=== PATIENT | male | born 2005 | race Caucasian/White ===

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

== ENCOUNTER 2024-05-20 17:58 | Observation (INO) | payer BC, SELFPAY ==
[2024-05-20 18:04] VITALS: BP 137/79; PULSE 73; RESP 18; TEMP 36.7; O2SAT 97; BMI 22.0
[2024-05-20 18:37] LABS: Strep A DNA Probe* NOT DETECTED (Not Detectd)
--- NOTE | 2024-05-20 18:55 | CRLHL7_ITS ---
For Patients: As a result of the Century Cures Act, medical imaging exams and procedure reports are released immediately into your electronic medical record. You may view this report before your referring provider. If you have questions, please contact your health care provider. INDICATION: Left peritonsillar swelling. TECHNIQUE: CT of the neck soft tissues performed with IV contrast. Contrast: 71 cc Isovue 370. COMPARISON: CT neck soft tissues 01/12/2017. FINDINGS: Asymmetric enlargement of the left palatine tonsil. There is a hypodense fluid collection measuring 1.8 cm in the left peritonsillar region. Mild inflammatory change within the left parapharyngeal fat. The parotid and submandibular glands appear unremarkable. The thyroid gland is normal. Prominent left greater than right cervical chain lymphadenopathy, favored to be reactive. The visualized major vascular structures appear intact. The visualized intracranial components appear grossly intact. Visualized orbits and contents appear unremarkable. The paranasal sinuses are clear as visualized. Lung apices are clear. IMPRESSION: 1. Left peritonsillar abscess measuring up to 1.8 cm. 2. Reactive cervical chain lymphadenopathy. Please note that all CT scans at this facility use dose modulation, iterative reconstruction, and/or weight-based dosing when appropriate to reduce radiation dose to as low as reasonably achievable. Dictated by Olivier Finley MD @ 05/20/2024 7:40:50 PM (Electronically Signed)
--- NOTE | 2024-05-20 18:57 | ED_ITS ---
HPI - General Adult General Chief complaint: Sore Throat Stated complaint: sore throat, swelling Time Seen by Provider: 05/20/24 18:03 Source: patient and family Mode of arrival: ambulatory Limitations: no limitations History of Present Illness HPI narrative: 18-year-old male presents the emergency department with 4 day history of sore throat, significantly worsening over the past 2 days. Hard to swallow. No br eathing difficulty. Prior history of peritonsillar abscesses at age 12 and 14. Believes left for the 1st 1, right for the 2nd but not completely sure. Has had prior drainage x2. Denies fever. No illness exposures. Not immunocompromised. No trauma or injury. Has not tried any interventions to help with symptoms at home. Past medical history benign besides the peritonsillar abscesses. No long-term medications, no allergies. Has had drainage x2 as surgeries. ROS is notable for the HEENT symptoms as above, otherwise denies times 12 systems. No headache, no fever, no sinus tenderness, no nausea vomiting, no difficulty breathing, productive cough or skin changes. Related Data Home Medications ?Medication ?Instructions ?Recorded ?Confirmed No Known Home Medications 05/20/24 05/20/24 Allergies Allergy/AdvReac Type Severity Reaction Status Date / Time No Known Drug Allergies Allergy Verified 05/06/23 11:05 [facility] Social History Smoking Status: Current some day smoker What tobacco products do you use: cigars Do you use any of these nicotine containing products: Vaping Products How often do you have a drink containing alcohol: monthly or less How many standard drinks containing alcohol do you have on a typical day: 1 or 2 How often do you have six or more drinks on one occasion: Never AUDIT-C Alcohol total score: 1 Non-prescribed substance use: marijuana (any form) Non-prescribed substance use details: daily smoking Exam Const: Vital Signs, click to edit/add: Vital Signs - 24 hr 05/20/24 18:04 05/20/24 20:00 Temperature 98.1 F Pulse Rate [Pulse Oximeter] 73 74 Respiratory Rate 18 16 Blood Pressure [Ri ght Upper Arm] 137/79 130/80 Pulse Oximetry 97 96 Oxygen Delivery Me thod Room Air Documenting provider has reviewed patient's vital signs: yes Common normals: no apparent distress General appearance: well kempt Other: Friendly, cooperative, good historian. No muffled voice. HENMT: Common normals: normocephalic and TM's normal bilaterally Head and scalp: normocephalic Tympanic membrane: TM's normal bilaterally Other: Moist mucosa, normal lips, tongue and teeth. Asymmetric swelling of left perito nsillar area with 2+ tonsils, redness present left greater than right but no exudate. Nares normal in appearance. Facial bones normal with no signs of trauma. Eye: Common normals: conjunctivae normal General eye: normal appearance of both eyes Conjunctiva: conjunctiva(e) normal Neck & C-Spine: Common normals: full ROM Other: Moderate anterior cervical and submandibular lymphadenopathy left greater than right. No asymmetric neck swelling Chest: Common normals: inspection of chest normal Resp: Common normals: normal respiratory effort, no use of accessory muscles and clear to auscultation bilaterally Effort & inspection: able to speak in complete sentences Auscultation: clear to auscultation bilaterally Cardio: Common normals: regular rate, regular rhythm, S1 normal heart sound, S2 normal heart sound and no murmurs Rate: regular rate Rhythm: regular rhythm Heart sounds: S1 normal and S2 normal Psych: Appearance: well kempt Attitude: engaged Activity/motor behavior: appropriate eye contact Insight: insight good Judgement: judgment good Skin: Common normals: no rashes or lesions noted General skin exam: no rashes or lesions noted Course Course ED Course: 89-year-old male with asymmetric swelling of left tonsil area concerning for peritonsillar abscess. Prior history of peritonsillar abscess increasing his risk for this as well. Strep test is obtained and is negative. Plan: Will obtain CBC, CRP, basic metabolic panel, bolus 1 L of normal saline. CT of the neck. If signs of abscess, will consult ENT. Reevaluation(s) Time of Reevaluation #1: 20:27 Reevaluation #1: Labs reviewed with patient. Does have some leukocytosis and left shift. Electrolytes look great. At hydrated. CRP elevated. CT did show 1.8 cm abscess. Discussed case with Dr. Beltre. Patient is not showing any voice changes, signs of trismus, airway compromise or inability to swallow though he is having some pain with this. Will start Unasyn, give 8 mg IV dexamethasone and admit to hospitalist team. Dr. Loomis has accepted admission. Two tablets of hydrocodone will be tried in the ED for pain management. Dr. Beltre has requested no Toradol. Hospitalist team to update Dr. Beltre in the morning with patient progress. Please keep NPO after midnight. Clears okay for now. If patient does not have sufficient improvement in symptoms, may require surgical drainage. Dr. Beltre is aware and will await hospitalist update. Vital Signs Vital signs: Initial Vital Signs Temperature 98.1 F 05/20/24 18:04 Temperature Source Temporal Artery Scan 05/20/24 18:04 Pulse Rate 73 05/20/24 18:04 Respiratory Rate 18 05/20/24 18:04 Blood Pressure 137/79 05/20/24 18:04 Blood Pressure Mean 98 05/20/24 18:04 Pulse Oximetry 97 05/20/24 18:04 Oxygen Delivery Method Room Air 05/20/24 18:04 Vital Signs Temperature 98.1 F 05/20/24 18:04 Pulse Rate 73 05/20/24 18:04 Respiratory Rate 18 05/20/24 18:04 Blood Pressure 137/79 05/20/24 18:04 Pulse Oximetry 97 05/20/24 18:04 Oxygen Delivery Method Room Air 05/20/24 18:04 Temperature 98.1 F 05/20/24 18:04 Pulse Rate 74 05/20/24 20:00 Respiratory Rate 16 05/20/24 20:00 Blood Pressure 130/80 05/20/24 20:00 Pulse Oximetry 96 05/20/24 20:00 Oxygen Delivery Method Room Air 05/20/24 18:04 Medications Administered Medications: Discontinued Medications Generic Name Dose Route Start Last Admin Trade Name Freq PRN Reason Stop Dose Admin Sodium Chloride 1,000 mls @ 1,000 mls/hr 05/20/24 18:56 05/20/24 19:59 0.9 % Sodium Chloride 1000 Ml IV 05/20/24 19:55 Infused .Q1H [facility] Infusion Medical Decision Making Lab Data Lab results reviewed: Yes I reviewed the patient's lab results Lab results narrative: Leukocytosis with left shift and elevated CRP. Strep test is negative. Labs: Lab Results 08/17/24 08/17/24 Range/Units 18:05 19:05 WBC 13.47 H (4.50-11.00) K/uL RBC 5.36 (4.30-5.90) m/uL Hgb 15.4 (13.5-17.5) gm/dL Hct 45.6 (37.0-53.0) % MCV 85 (80-100) fL MCH 29 (26-34) pg MCHC 34 (32-36) gm/dL RDW Coeff of Brielle 12.4 (11.5-15.5) % Plt Count 229 (140-440) K/uL Neut % (Auto) 74.1 H (42.0-72.0) % Lymph % (Auto) 14.6 L (20-44) % [place] % (Auto) 10.4 (0.0-11.0) % Eos % (Auto) 0.6 (0.0-7.0) % Baso % (Auto) 0.1 (0.0-3.0) % Neut # (Auto) 10.00 H (1.7-7.0) K/uL Lymph # (Auto) 2.00 (0.90-2.90) K/uL [place] # (Auto) 1.40 H (0.00-0.90) K/UL Eos # (Auto) 0.10 (0.00-0.50) K/uL Baso # (Auto) 0.00 (0.00-0.30) K/uL Abs Immat Gran (auto) 0.00 (0.00-0.30) K/uL Imm/Tot Granulo (auto) 0.2 % Sodium 136 (135-149) mmol/L Potassium 4.2 (3.6-5.1) mmol/L Chloride 101 (96-114) mmol/L Carbon Dioxide 26 (20-32) mmol/L Anion Gap 9 (7-15) mEq/L BUN 19 (5-24) mg/dL Creatinine 1.1 (0.6-1.2) mg/dL Estimated Creat Clear 100.48 Estimated GFR 99 ml/min Glucose 103 (60-115) mg/dL Calcium 10.0 (8.7-10.8) mg/dL C-Reactive Protein 7.8 H (0.5-1.0) mg/dL Group A Strep DNA NOT DETECTED (Not Detectd) Imaging Data CT neck soft tissue: Attestation: I have reviewed the pertinent imaging results. My impression: Left tonsillar versus peritonsillar abscess. Radiologist's impression: Findings/impression : IMPRESSION: 1. Left peritonsillar abscess measuring up to 1.8 cm. 2. Reactive cervical chain lymphadenopathy. Discharge Plan Discharge Clinical Impression: Abscess, peritonsillar Patient Disposition: Admitted As Observation
[2024-05-20] MEDS: 0.9 % SODIUM CHLORIDE 1000 ml 1,000 ML IV (19:05)
[2024-05-20 19:13] LABS: Basophils Percent Auto 0.1 % (0.0-3.0); Eosinophils Percent Auto 0.6 % (0.0-7.0); Hematocrit 45.6 % (37.0-53.0); Hemoglobin* 15.4 gm/dL (13.5-17.5); Immature Granulocytes Pct Auto 0.2 %; Lymphocytes Percent Auto 14.6 % (20-44); Mean Corpuscular HGB Conc 34 gm/dL (32-36); Mean Corpuscular Hemoglobin 29 pg (26-34); Mean Corpuscular Volume 85 fL (80-100); Monocytes Percent Auto 10.4 % (0.0-11.0); Neutrophils Percent Auto 74.1 % (42.0-72.0); Platelet Count* 229 K/uL (140-440); RDW Coefficient of Variation % 12.4 % (11.5-15.5); Red Blood Count 5.36 m/uL (4.30-5.90); White Blood Count* 13.47 K/uL (4.50-11.00)
[2024-05-20 19:18] LABS: Slide Review Reflex No
[2024-05-20 19:25] LABS: Chloride* 101 mmol/L (96-114); Potassium* 4.2 mmol/L (3.6-5.1); Sodium* 136 mmol/L (135-149)
[2024-05-20 19:28] LABS: Creatinine* 1.1 mg/dL (0.6-1.2); Est. Creatinine Clearance* 100.48; Estimated Glomerular Filt Rate 99 ml/min
--- OUTSIDE RECORDS SUMMARY | 2024-05-20 19:28 | XMS_ITS | Clinical Summary ---
Author Organization [facility] Address [place], [place] [address] Care Team Providers Care Licensed Nuclear Control Room Operator Name Role Phone Carmen Rader MD Primary Care Provi giana Allergies No known active allergies Medications Medication Sig Dispensed Refills Start Date End Date Status FLUoxetine (PROZAC) 20 mg capsuleIndications:Adj ustment disorder with mixed anxiety and depressed mood Take 1 Capsule (20 mg) by mouth once daily. 30 Capsule 03/16/2024 Active hydrOXYzine HCL (ATARAX) 50 mg tabletIndications:Adju stment disorder with mixed anxiety and depressed mood Take 1 Tablet (50 mg) by mouth every 6 hours if needed for Itching. 30 Tablet 03/16/2024 Active dextroamphetamine-amph etamine (Adderall XR) 30 mg Extended-Release capsuleIndications:ADH D (attention deficit hyperactivity disorder), inattentive type Take 1 Capsule (30 mg) by mouth once daily. 30 Capsule 03/16/2024 Active Active Problems Problem Noted Date Diagnosed Date Adjustment disorder with mixed anxiety and depre ssed mood 10/05/2023 ADHD (attention deficit hype ractivity disorder), inattentive type 12/05/2020 Overview: Diagnosed at [facility] Encounters Date Type Department Care Team Description 05/10/2024 Telephone [facility] [address] [place], [place] [id number] Carmen Rader MD Questions (Referral Questions) 03/20/2024 Telephone [facility] [address] [place] [address] Carmen Rader MD Appointment 03/16/2024 Refill [facility] [address] [facility] [place] [address] Carmen Rader MD Refill Request (FLUoxetine (PROZAC) 20 mg [id number] Rbofrkl58/9/2024-No/Sig : Take 1 Capsule (20 mg) by mouth once daily./ /hydrOXYzine HCL (ATARAX) 50 mg [id number] Avpndk2202/10/2024-No/Sig: Take 1 Tablet (50 mg) by mouth every 6 hours if needed for Itching./ /dextroamphetamine-amph etamine (Adderall XR) 30 mg Extended-Release [id number] Pjvipzg98/9/2024-No/Sig : Take 1 Capsule (30 mg) by mouth once daily./) from Last 3 Months Immunizations Name Administration Dates Next Due COVID-19 vaccine (Social Media Simplified NTech 30mcg/0.3mL) 12YO+ BIVALENT PF, MDV 09/01/2022 COVID-19 vaccine (Social Media Simplified NTSilent Herdsman 30mcg/0.3mL) PF, MDV 02/19/2021,01/29/2021 DTaP 09/24/2005,2004 INcE-EmyF-ZEV (Pediarix) 2004,2004 DTaP-IPV (Kinrix) 06/07/2009 HIB PRP-OMP (PedvaxHIB) 09/24/2005,2004, HPV 9 (Gardasil 9) 06/23/2021,01/06/2021, 021 Hepatitis A (Peds) 06/23/2021,12/05/2020 Hepatitis B (Peds) 2004 Inactivated Polio Vaccine 2004 Influenza, IIV3 (Age >=3 years) 10/29/2005,09/24 Influenza, IIV4 06/23/2021 MMR 06/07/2009,09/24/2005 Meningococcal Vaccine (Menveo) 12/05/2020,2015 Pneumococcal conj 7-Valent (Prevnar 7) 1 2004,2004,2004,08/06 Polio Virus, Unspecified 2004 Tdap 06/18/2016 Varicella Vaccine 12/05/2020,06/07/2009 Family History Medical History Relation Name Comments ADD / ADHD Father ADD / ADHD Mother Atrial fibrillation Mother ADD / ADHD Sister Relation Name Status Comments Father Mother Sister Social History Tobacco Use Types Packs/Day Years Used Date Smoking Tobacco: Never Smokeless Tobacco: Never Tobacco Cessation:Counseling Given: No Alcohol Use Standard Drinks/Week Comments Not Currently 0 (1 standard drink = 0.6 oz pur e alcohol) Occ PHQ-2 Answer Date Recorded PHQ-2 TOTAL SCORE 2 01/12/2024 Social Connections Answer Date Recorded Frequency of Communication with Friends and Fami ly 4 11/02/2023 Financial Resource Strain Answer Date R ecorded Difficulty of Paying Living Expenses 3 11/02/2023 Difficulty of Paying Living Expenses Not on file 11/02/2023 Food Insecurity Answer Date Recorded Worried About Running Out of Food in the Last Ye ar 1 11/02/2023 Transportation Needs Answer Date Record ed Lack of Transportation (Medical) 1 11/02/2023 Housing Stability Answer Date Recorded Unable to Pay for Housing in the Last Year 1 11/02/2023 Sex and Gender Information Value Date Recorded Sex Assigned at Not on file Gender Identity Not on file Sexual Orientation Not on file Obstetrics History Last Filed Vital Signs Vital Sign Reading Time Taken Comments Blood Pressure 130/80 11/02/2023 11:07 AM ROADS SUPERINTENDENT Pulse 84 11/02/2023 11:07 AM ROADS SUPERINTENDENT Temperature 36.9 ??C (98.5 ??F) 02/13/2021 1 1:44 AM CDT Respiratory Rate - - Oxygen Saturation 99% 11/02/2023 11: 07 AM ROADS SUPERINTENDENT Inhaled Oxygen Concentration - - Weight 64.7 kg (142 lb 11.2 oz) 024 11:07 AM ROADS SUPERINTENDENT Height 173 cm (5' 8.11) 11/02/2023 11: 07 AM ROADS SUPERINTENDENT Body Mass Index 21.63 11/02/2023 11:07 AM ROADS SUPERINTENDENT Plan of Treatment Health Maintenance Due Date Last Done Comments Well Child Check for age 3-20 12/05/2021 12/05/2020 Hepatitis C screening for age 18-79 2022 COVID-19 vaccine series ( season) 2023 09/01/2022, 02/19/2021, 01/29/2021 Influenza for age 9-49 06/04/2024 , 10/29/2005, 09/24/2005 BMI (ht and wt on same day) for age 18+ 11/02/2024 11/02/2023, 10/05/2023, 09/16/2023, Additional history exists Depression screening for age 12+ 01/11/2025 01/12/2024, 11/04/2023, 11/02/2023, Additional history exists Tetanus booster 06/18/2026 06/18/2016 Pneumococcal series for age 6-64 Aged Out 09/24/2005, 2004, 2004, Additional history exists No longer eligible based on patient's age to complete this topic Tdap Completed 06/18/2016 HIV for age 15-65 Completed 12/05/2020 Meningococcal series for age 11-21 Completed 12/05/2020, 06/18/2016 HPV series for age 9-26 Completed 06/23/20 21, 01/06/2021, 12/05/2020 Procedures Procedure Name Priority Date/Time Associated Diagnosis Comments ANTI HIV 1/2 Routine 12/05/2020 12:35 PM ROADS SUPERINTENDENT Screening for HIV (human immunodeficiency virus) from Last 3 Months or Most Recently Relevant to Health Maintenance Results * ANTI HIV 1/2 (12/05/2020 12:35 PM ROADS SUPERINTENDENT) HIV-1/HIV-2 ANTIBODY Non-Reacti ve Non-Reacti ve 12/05/2020 10:43 PM ROADS SUPERINTENDENT [facility] Comment:HIV-1 p24 and HIV-1/ HIV-2 Ab not detected. Blood BLOOD SPECIMEN / Unknown Venipuncture / Unknown 12/05/2020 12:35 PM ROADS SUPERINTENDENT 12/05/2020 12:40 PM ROADS SUPERINTENDENT Carmen Rader MD [facility] [address] [place] [address], from Last 3 Months or Most Recently Relevant to Health Maintenance Care Teams Licensed Nuclear Control Room Operator Relationship Specialty Start Date End Date Carmen Rader MD [address] [place] [address] PCP - General Pediatric 01/06/21
[2024-05-20 19:29] LABS: Anion Gap 9 mEq/L (7-15); Blood Urea Nitrogen* 19 mg/dL (5-24); Carbon Dioxide* 26 mmol/L (20-32); Glucose* 103 mg/dL (60-115)
[2024-05-20 19:32] LABS: C Reactive Protein* 7.8 mg/dL (0.5-1.0)
[2024-05-20 20:00] VITALS: BP 130/80; PULSE 74; RESP 16; O2SAT 96
[2024-05-20] MEDS: HYDROCODONE-ACETAMIN 5-325 MG 1 TAB 2 TAB PO (21:00)
[2024-05-20] MEDS: dexAMETHasone 10 MG/ML inj 8 MG IVP (21:34)
[2024-05-20] MEDS: AMPICILLIN/SULBACTAM 3 GM in 0.9 % SODIUM CHLORIDE Mini-bag 100 ML IVPB (21:34)
[2024-05-20 22:00] VITALS: BP 145/107; RESP 18; TEMP 36.7; O2SAT 96
[2024-05-20 23:00] VITALS: RESP 18
--- NOTE | 2024-05-20 23:02 | PM.IMHP1 ---
Hospitalist- H&P: HPI History of Present Illness Time Seen by Provider: 22:30 Date Seen: 05/20/24 Chief complaint: sore throat, swelling Narrative: Alphonso Loyola is a 18 year old male with a prior history of 2 peritonsillar abscesses at the ages of 12 and 14 who presented through the emergency department today for concern of a sore throat for the past 4 days. He has had a sharp pain just behind his left upper back most molar. The pain has gotten worse to the point where he could not eat and it was difficult to swallow even liquids. He was spitting in a cup for a day or 2. He felt like he was getting dry. He could not sleep all last night due to the pain. And he is having trouble opening his mouth and has to do so very slowly. He got dexamethasone, hydrocodone, IV fluid, and Unasyn in the ER and is already feeling somewhat better. He notes that his voice was muffled earlier, but is no longer. He denies any fevers or chills. He denies any upper respiratory illness recently. Review of Systems Status of ROS: Reports: 10 or more systems reviewed and unremarkable except as noted in History and below [facility] Medical History (Updated 05/20/24 @ 23:18 by Merna Loomis MD) ADHD ?F90.9 - Attention-deficit hyperactivity disorder, unspecified type (ICD-10) Surgical History (Updated 05/20/24 @ 23:07 by Merna Loomis MD) H/O peritonsillar abscess drainage ?Z98.890 - Other specified postprocedural states (ICD-10) Social History (Updated 05/20/24 @ 23:09 by Merna Loomis MD) Narrative: Works at a local [employer]. He tells me that he vapes socially, but has not had any for a few days because he tried yesterday but could not really suck and air through the vape due to pain. He typically uses marijuana daily but again has not used it for several days. He tells me he has not used alcohol in several weeks to months. He denies any other recreational drugs besides marijuana. Smoking Status: Current some day smoker What tobacco products do you use: cigars Do you use any of these nicotine containing products: Vaping Products How often do you have a drink containing alcohol: monthly or less How many standard drinks containing alcohol do you have on a typical day: 1 or 2 How often do you have six or more drinks on one occasion: Never AUDIT-C Alcohol total score: 1 Non-prescribed substance use: marijuana (any form) Non-prescribed substance use details: daily smoking Meds Home Medications and Allergies Home Medications ?Medication ?Instructions ?Recorded ?Confirmed ?Type melatonin 5 mg capsule 5 - 10 mg PO HS PRN 05/20/24 05/20/24 History Allergies Allergy/AdvReac Type Severity Reaction Status Date / Time No Known Drug Allergies Allergy Verified 05/06/23 11:05 Exam Narrative: Exam Narrative: General: No acute distress. Awake alert oriented x3. Voices of clear quality, not muffled. Appears comfortable. Able to handle his own secretions. Able to swallow sips of water that is at bedside. HEENT: Normocephalic atraumatic, pupils equally round and reactive to light and accommodation. Oropharynx: Trismus noted. Left tonsil is smooth and swollen superiorly and is without ulcer, purulence or exudate. Right tonsil is unremarkable in appearance. Mucous membranes are moist. Left superior anterior lymphadenopathy noted. No JVD. Cardiovascular: Regular rate and rhythm. No murmurs, gallops, or rubs. Chest: No increased work of breathing. Clear to auscultation bilaterally. No crackles or wheezes. Abdomen: Bowel sounds present. Soft, nondistended, nontender. No hepatosplenomegaly or masses. Extremities: No edema, no cyanosis or clubbing. Skin: No jaundice, no pallor, no rashes on visible skin. Const: Vital Signs, click to edit/add: Vital Signs - 24 hr 05/20/24 18:04 05/20/24 20:00 Temperature 98.1 F Pulse Rate [Pulse Oximeter] 73 74 Respiratory Rate 18 16 Blood Pressure [Ri ght Upper Arm] 137/79 130/80 Pulse Oximetry 97 96 Oxygen Delivery Me thod Room Air Hospitalist - H&P: Result Labs Labs: Short CBC 05/20/24 Range/Units 19:05 WBC 13.47 H (4.50-11.00) K/uL Hgb 15.4 (13.5-17.5) gm/dL Hct 45.6 (37.0-53.0) % Plt Count 229 (140-440) K/uL [facility] 05/20/24 19:05 Sodium 136 Potassium 4.2 Chloride 101 Carbon Dioxide 26 BUN 19 Creatinine 1.1 Glucose 103 Calcium 10.0 Ordering Physician: Tasha Germain M.D. Date of Service: 05/20/24 Procedure(s): CT soft tissue neck w con Accession Number(s): [id number] cc: Damion Huggins D.O.; Tasha Germain M.D.~ For Patients: As a result of the Cures Act, medical imaging exams and procedure reports are released immediately into your electronic medical record. You may view this report before your referring provider. If you have questions, please contact your health care provider. INDICATION: Left peritonsillar swelling. TECHNIQUE: CT of the neck soft tissues performed with IV contrast. Contrast: 71 cc Isovue 370. COMPARISON: CT neck soft tissues 01/12/2017. FINDINGS: Asymmetric enlargement of the left palatine tonsil. There is a hypodense fluid collection measuring 1.8 cm in the left peritonsillar region. Mild inflammatory change within the left parapharyngeal fat. The parotid and submandibular glands appear unremarkable. The thyroid gland is normal. Prominent left greater than right cervical chain lymphadenopathy, favored to be reactive. The visualized major vascular structures appear intact. The visualized intracranial components appear grossly intact. Visualized orbits and contents appear unremarkable. The paranasal sinuses are clear as visualized. Lung apices are clear. IMPRESSION: 1. Left peritonsillar abscess measuring up to 1.8 cm. 2. Reactive cervical chain lymphadenopathy. Please note that all CT scans at this facility use dose modulation, iterative reconstruction, and/or weight-based dosing when appropriate to reduce radiation dose to as low as reasonably achievable. Dictated by Olivier Finley MD @ 05/20/2024 7:40:50 PM (Electronically Signed) Assessment and Plan Assessment and plan (1) Abscess, peritonsillar: Problem comment: - admit for observation overnight. Dr. Beltre from ENT was contacted from the ER. Appreciate his recommendations. Clear liquid diet until midnight, then NPO. Continue Unasyn and dexamethasone that were started in the emergency department. Will use oral oxycodone for pain control as it will last longer than IV medication. Continue IV fluids for maintenance overnight since he will be NPO for most of it. Re-evaluate in the morning. Status: Acute
[2024-05-20 23:24] VITALS: O2SAT 97
--- NOTE | 2024-05-20 23:25 | PC.NURSE ---
Patient alert and oriented x4. Independent. Reports that he feels better than when he presented to the ED. He reports his pain to be 6/10 from 8/10 which is tolerable per patient. Skin intact with no open areas noted.Able to communicate needs. Patient notified of diet order i.e clear liquids till midnight then NPO at midnight. Patient agreeable to plan.
[2024-05-20 23:50] VITALS: BP 134/98; PULSE 64; RESP 18; TEMP 36.5; O2SAT 97
[2024-05-21] MEDS: LACTATED RINGERS 1000 ML 1,000 ML 125 ML IV ×2 (00:03→09:42)
[2024-05-21] MEDS: MELATONIN 3 MG TABLET 6 MG PO (00:08)
[2024-05-21] MEDS: AMPICILLIN/SULBACTAM 3 GM in 0.9 % SODIUM CHLORIDE Mini-bag 100 ML IVPB ×3 (02:59→14:24)
[2024-05-21 03:44] VITALS: BP 108/66; PULSE 63; RESP 16; TEMP 36; O2SAT 97
[2024-05-21 06:37] LABS: Basophils Percent Auto 0.1 % (0.0-3.0); Hematocrit 40.1 % (37.0-53.0); Hemoglobin* 13.6 gm/dL (13.5-17.5); Immature Granulocytes Pct Auto 0.2 %; Lymphocytes Percent Auto 7.9 % (20-44); Mean Corpuscular HGB Conc 34 gm/dL (32-36); Mean Corpuscular Hemoglobin 29 pg (26-34); Mean Corpuscular Volume 85 fL (80-100); Monocytes Percent Auto 2.7 % (0.0-11.0); Neutrophils Percent Auto 89.1 % (42.0-72.0); Platelet Count* 233 K/uL (140-440); RDW Coefficient of Variation % 12.3 % (11.5-15.5); Red Blood Count 4.73 m/uL (4.30-5.90); White Blood Count* 12.02 K/uL (4.50-11.00)
[2024-05-21 06:41] LABS: Slide Review Reflex No
--- NOTE | 2024-05-21 06:41 | PC.NURSE ---
End of shift note: Pt alert & oriented x 4 and able to make needs known. He is independent with transferring/ambulation. DBP noted to be elevated at 98 last evening though B/P of 108/66 noted with 0300 VS. Pt has been on RA throughout the shift and has been afebrile. New IV started in L wrist with LR started at 125 mLs/hr per order. Pt NPO since 0000 in prep for possible surgery today. He has been denying pain when asked and states he is feeling better today compared to yesterday. Pt stated, I'm noticing my voice is coming back. Pt remains on IV antibiotic. Call light within reach. ?
[2024-05-21 06:58] LABS: Chloride* 104 mmol/L (96-114); Potassium* 4.5 mmol/L (3.6-5.1); Sodium* 137 mmol/L (135-149)
[2024-05-21 07:01] LABS: Anion Gap 9 mEq/L (7-15); Carbon Dioxide* 24 mmol/L (20-32); Creatinine* 0.8 mg/dL (0.6-1.2); Est. Creatinine Clearance* 143.69; Estimated Glomerular Filt Rate 131 ml/min
[2024-05-21 07:02] LABS: Blood Urea Nitrogen* 15 mg/dL (5-24); Calcium* 9.7 mg/dL (8.7-10.8); Glucose* 156 mg/dL (60-115)
[2024-05-21 08:00] VITALS: BP 120/72; PULSE 72; RESP 18; TEMP 36.2; O2SAT 98
[2024-05-21 08:31] LABS: C Reactive Protein* 17.7 mg/dL (0.5-1.0)
[2024-05-21] MEDS: dexAMETHasone 4 MG TABLET 8 MG PO (08:34)
[2024-05-21] MEDS: OXYCODONE 5 MG TABLET PO ×2 (08:48→13:41)
[2024-05-21 12:00] VITALS: BP 118/64; PULSE 68; RESP 18; TEMP 36.4; O2SAT 99
--- NOTE | 2024-05-21 12:32 | PM.DS1 ---
DS: Providers Provider Date Seen: 05/21/24 Date of admission: 05/20/24 21:47 Primary care physician: Damion Huggins DO Admitting Clinician: Merna Loomis MD Attending Physician on discharge: Rene Chong MD Date of Discharge: 05/21/24 DS: Diagnosis Discharge Diagnosis (1) Abscess, peritonsillar: Status: Acute Problem details: - admit for observation overnight. Dr. Beltre from ENT was contacted from the ER. Appreciate his recommendations. Clear liquid diet until midnight, then NPO. Continue Unasyn and dexamethasone that were started in the emergency department. Will use oral oxycodone for pain control as it will last longer than IV medication. Continue IV fluids for maintenance overnight since he will be NPO for most of it. Re-evaluate in the morning. DS: Summary Hospital Course Hospital Course: Alphonso Loyola is a 18 year old male with a prior history of 2 peritonsillar abscesses at the ages of 12 and 14 who presented through the emergency department today for concern of a sore throat for the past 4 days. He has had a sharp pain just behind his left upper back most molar. The pain has gotten worse to the point where he could not eat and it was difficult to swallow even liquids. He was spitting in a cup for a day or 2. He felt like he was getting dry. He could not sleep all last night due to the pain. And he is having trouble opening his mouth and has to do so very slowly. He got dexamethasone, hydrocodone, IV fluid, and Unasyn in the ER and is already feeling somewhat better. He notes that his voice was muffled earlier, but is no longer. He denies any fevers or chills. He denies any upper respiratory illness recently. Overnight he reports he was continued to get better. No fever. Stable to swallow better today. Good appetite. Status at Discharge Overall status at discharge: patient is progressing back to baseline Time Spent with Patient Time attestation: Total time spent providing and/or coordinating discharge services: Time spent: Greater than 30 minutes Specific discharge activities: Patient had many questions about peritonsillar abscess, tonsillectomy, pain control. Exam Narrative: Exam Narrative: He is alert and appears in no distress. Speech is normal. No muffling or hoarseness to his voice. Oropharynx with good airway. [id number] left peritonsillar swelling and erythema. No significant exudate. No trismus. Neck is supple with mild anterior cervical tenderness but no significant adenopathy on the left. Const: Vital Signs, click to edit/add: Vital Signs - 24 hr 05/20/24 18:04 05/20/24 20:00 05/20/24 22:00 Temperature 98.1 F 98.1 F Pulse Rate [Pulse Oximeter] 73 74 Pulse Rate [Right Pulse Oximeter] Respiratory Rate 18 16 18 Blood Pressure [Le ft Arm] 145/107 H Blood Pressure [Ri ght Upper Arm] 137/79 130/80 Pulse Oximetry 97 96 96 Oxygen Delivery Me thod Room Air Room Air 05/20/24 23:00 05/20/24 23:24 05/20/24 23:50 Temperature 97.7 F Pulse Rate [Pulse Oximeter] Pulse Rate [Right Pulse Oximeter] 64 Respiratory Rate 18 18 Blood Pressure [Le ft Arm] 134/98 H Blood Pressure [Ri ght Upper Arm] Pulse Oximetry 97 97 Oxygen Delivery Me thod Room Air 05/21/24 03:44 05/21/24 08:00 05/21/24 08:00 Temperature 96.8 F L 97.2 F L Pulse Rate [Pulse Oximeter] Pulse Rate [Right Pulse Oximeter] 63 72 Respiratory Rate 16 18 18 Blood Pressure [Le ft Arm] 108/66 120/72 Blood Pressure [Ri ght Upper Arm] Pulse Oximetry 97 98 98 Oxygen Delivery Me thod Room Air Room Air Room Air Documenting provider has reviewed patient's vital signs: yes DS: Data Data Completed and Pending Labs on day of discharge: Labs from last 24 hours 05/21/24 05/20/24 05/20/24 05:47 19:05 18:05 WBC 12.02 H 13.47 H RBC 4.73 5.36 Hgb 13.6 15.4 Hct 40.1 45.6 MCV 85 85 MCH 29 29 MCHC 34 34 RDW Coeff of Brielle 12.3 12.4 Plt Count 233 229 Neut % (Auto) 89.1 H 74.1 H Lymph % (Auto) 7.9 L 14.6 L Kane % (Auto) 2.7 10.4 Eos % (Auto) 0.0 0.6 Baso % (Auto) 0.1 0.1 Neut # (Auto) 10.70 H 10.00 H Lymph # (Auto) 0.90 2.00 Kane # (Auto) 0.30 1.40 H Eos # (Auto) 0.00 0.10 Baso # (Auto) 0.00 0.00 Abs Immat Gran (auto) 0.00 0.00 Imm/Tot Granulo (auto) 0.2 0.2 Sodium 137 136 Potassium 4.5 4.2 Chloride 104 101 Carbon Dioxide 24 26 Anion Gap 9 9 BUN 15 19 Creatinine 0.8 1.1 Estimated Creat Clear 143.69 100.48 Estimated GFR 131 99 Glucose 156 H 103 Calcium 9.7 10.0 C-Reactive Protein 17.7 H 7.8 H Group A Strep DNA NOT DETECTED Imaging CT scan neck soft tissue: Radiologist's impression: INDICATION: Left peritonsillar swelling. TECHNIQUE: CT of the neck soft tissues performed with IV contrast. Contrast: 71 cc Isovue 370. COMPARISON: CT neck soft tissues 01/12/2017. FINDINGS: Asymmetric enlargement of the left palatine tonsil. There is a hypodense fluid collection measuring 1.8 cm in the left peritonsillar region. Mild inflammatory change within the left parapharyngeal fat. The parotid and submandibular glands appear unremarkable. The thyroid gland is normal. Prominent left greater than right cervical chain lymphadenopathy, favored to be reactive. The visualized major vascular structures appear intact. The visualized intracranial components appear grossly intact. Visualized orbits and contents appear unremarkable. The paranasal sinuses are clear as visualized. Lung apices are clear. IMPRESSION: 1. Left peritonsillar abscess measuring up to 1.8 cm. 2. Reactive cervical chain lymphadenopathy. Discharge Plan Discharge Disposition: Home, Self-Care Date of Admission: 05/20/24 21:47 Attending Provider on Discharge: Giovani Chong Primary Care Provider: Damion Huggins Condition: Improved Anticipated Discharge Date/Time: 05/21/24 14:00 Discharge Medications: New amoxicillin-pot clavulanate 875-125 mg tablet 1 tab PO BID Qty: 14 0RF oxycodone 5 mg tablet 5 mg PO Q6H PRN (Reason: pain) Qty: 10 0RF Continued melatonin 5 mg capsule 5 - 10 mg PO HS PRN Discharge Orders: Discharge Order (Routine); Ordered 05/21/24 Ordered By: Giovani Chong Patient Education: Amoxicillin/Clavulanate Potassium (By mouth), Peritonsillar Abscess (DC) Additional Instructions: Return to the hospital if worsening throat pain, fever, trouble swallowing or trouble breathing. Activity Level: No Restrictions Discharge Diet: Regular Follow Up Appointments: Damion Huggins DO [Primary Care Provider] - Brad Beltre MD [Staff Physician] - 05/26/24 1:00 pm ([facility] for follow up) Forms: [facility] Info Instructions
--- NOTE | 2024-05-21 15:31 | PC.NURSE ---
Pt pleasant and cooperative. Rating pain 2-7/10, Oxycodone per MAR with relief. Up independent in room. Pt able to swallow small pills with water. Pt states he is feeling much better than night. I am able to talk easier too. IV antibiotics. DC instructions given verbally and in writing. All questions answered. IV DC'd, cath tip intact. Pt states pt is picking him up at door. DC @[id number].
== END 2024-05-21 15:26 | disposition home or self-care (01) ==
LOC: ED 20:30 → MEDSURG 21:47
PROVIDERS: Admitting Provider Family Medicine; Emergency Provider Family Medicine; PCP Pediatrics; Visit Provider Family Medicine
DX: J36 Peritonsillar abscess (principal); R79.82 Elevated C-reactive protein (CRP); D72.829 Elevated white blood cell count, unspecified; R13.10 Dysphagia, unspecified; F12.90 Cannabis use, unspecified, uncomplicated; F17.290 Nicotine dependence, other tobacco product, uncomplicated; F90.9 Attention-deficit hyperactivity disorder, unspecified type; Z87.09 Personal history of other diseases of the respiratory system; Z98.890 Other specified postprocedural states
CPT/HCPCS: 36415; 70491; 80048; 85025; 86140; 87651; 96361; 96365; 96366; 96375; 99284; 99285; A9270; G0378; J0295; J1100; J7030; J7120; Q9967

== ENCOUNTER 2024-12-29 00:29 | Emergency (ER) | payer BC, SELFPAY ==
--- OUTSIDE RECORDS SUMMARY | 2024-12-29 00:31 | XMS_ITS | Clinical Summary ---
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 30 Capsule 4 Active hydrOXYzine HCL (ATARAX) 50 mg tabletIndications: Adjustment disorder with mixed anxiety and depressed mood Take 1 Tablet (50 mg) by mouth every 6 hours if needed for Itching. 30 Tablet 4 Active dextroamphetamine- amphetamine (Adderall XR) 30 mg Extended-Release capsuleIndications :ADHD (attention deficit hyperactivity disorder), inattentive type Take 1 Capsule (30 mg) by mouth once daily. 30 Capsule 4 Active Active Problems Problem Noted Date Diagnosed Date Adjustment disorder with mixed anxiety and depre ssed mood 10/05/2023 ADHD (attention deficit hype ractivity disorder), inattentive type 12/05/2020 Overview (12/05/2020): Diagnosed at [facility] Immunizations Immunization Administration Dates Next Due COVID-19 vaccine (Tagasauris-Bio NTech 30mcg/0.3mL) 12YO+ BIVALENT PF MDV 09/01/2022 COVID-19 vaccine (Tagasauris-Bio NTech 30mcg/0.3mL) PF MDScot 02/19/2021,01/29/2021 DTaP 09/24/2005,2004 [id number] (Pediarix) 2004,2004 DTaP-IPV (Kinrix) 06/07/2009 HIB PRP-OMP (PedvaxHIB) 09/24/2005,2004, HPV 9 (Gardasil 9) 06/23/2021,01/06/2021, 021 Hepatitis A (Peds) 06/23/2021,12/05/2020 Hepatitis B (Peds) 2004 Inactivated Polio Vaccine 2004 Influenza, IIV3 (Age >=3 years) 10/29/2005,09/24 Influenza, IIV4 06/23/2021 MENINGOCOCCAL VACCINE 2 VIAL 2MO-55YO (MENVEO) 12/05/2020,06/18/2016 MMR 06/07/2009,09/24/2005 Pneumococcal conj 7-Valent (Prevnar 7) 1 2004,2004,2004,08/06 [...] 2 01/12/2024 Social Connections Answer Date Recorded Do you often feel lonely or isolated from those around you? 4 11/02/2023 Financial Resource Strain Answer Date R ecorded Difficulty of Paying Living Expenses 3 11/02/2023 Difficulty of Paying Living Expenses Not on file 11/02/2023 Food Insecurity Answer Date Recorded Do you worry your food will run out before you are able to buy more? 1 11/02/2023 Transportation Needs Answer Date Record ed Does lack of transportation keep you from medica l appointments? 1 11/02/2023 Does lack of transportation keep you from work, meetings or getting things that you need? 1 11/02/2023 Housing Stability Answer Date Recorded What is your housing situation today? 1 11/02/2023 Utilities Answer Date Recorded Do you have trouble paying f or utilities (for example, heat, electricity, water, phone)? 1 11/02/2023 Sex and Gender Information Value Date Recorded Sex Assigned at Not on file Legal Sex Male 7:05 AM FILING AND POLISHING SUPERVISOR Gender Identity Not on file Sexual Orientation Not on file Obstetrics History Last Filed Vital Signs Vital Sign Reading Time Taken Comments Blood Pressure 130/80 11/02/2023 11:07 AM FILING AND POLISHING SUPERVISOR Pulse 84 11/02/2023 11:07 AM FILING AND POLISHING SUPERVISOR Temperature 36.9 C (98.5 F) 02/13/2021 11:44 AM CDT Respiratory Rate - - Oxygen Saturation 99% 11/02/2023 11: 07 AM FILING AND POLISHING SUPERVISOR Inhaled Oxygen Concentration - - Weight 64.7 kg (142 lb 11.2 oz) 024 11:07 AM FILING AND POLISHING SUPERVISOR Height 173 cm (5' 8.11) 11/02/2023 11: 07 AM FILING AND POLISHING SUPERVISOR Body Mass Index 21.63 11/02/2023 11:07 AM FILING AND POLISHING SUPERVISOR Plan of Treatment Health Maintenance Due Date Last Done Comments Well Child Check for age 3-20 12/05/2021 12/05/2020 Hepatitis C screening for age 18-79 2022 COVID-19 vaccine series ( season) 2024 09/01/2022, 02/19/2021, 01/29/2021 Influenza Vaccine (#1) 2024 , 10/29/2005, 09/24/2005 BMI (ht and wt on same day) for age 18+ 11/02/2024 11/02/2023, 10/05/2023, 09/16/2023, Additional history exists Depression screening for age 12+ 01/11/2025 01/12/2024, 11/04/2023, 11/02/2023, Additional history exists Tetanus booster 06/18/2026 06/18/2016 Pneumococcal series for age 6-49 Aged Out 09/24/2005, 2004, 2004, Additional history exists No longer eligible based on patient's age to complete this topic Tdap Completed 06/18/2016 HIV for age 15-65 Completed 12/05/2020 Meningococcal series for age 11-21 Completed 12/05/2020, 06/18/2016 HPV series for age 9-26 Completed 06/23/20 21, 01/06/2021, 12/05/2020 Procedures Procedure Name Priority Date/Time Associated Diagnosis Comments ANTI HIV 1/2 Routine 12/05/2020 12:35 PM FILING AND POLISHING SUPERVISOR Screening for HIV (human immunodeficiency virus) from Last 3 Months or Most Recently Relevant to Health Maintenance Results * ANTI HIV 1/2 (12/05/2020 12:35 PM FILING AND POLISHING SUPERVISOR) HIV-1/HIV-2 ANTIBODY Non-Reacti ve Non-Reacti ve 12/05/2020 10:43 PM FILING AND POLISHING SUPERVISOR [facility] Comment:HIV-1 p24 and HIV-1/ HIV-2 Ab not detected. Blood BLOOD SPECIMEN / Unknown Venipuncture / Unknown 12/05/2020 12:35 PM FILING AND POLISHING SUPERVISOR 12/05/2020 12:40 PM FILING AND POLISHING SUPERVISOR Carmen Rader MD SEND OUTS Fin al Result [facility] 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
[2024-12-29 00:34] VITALS: BMI 28.0
--- NOTE | 2024-12-29 00:42 | ED.ANIMALBIT ---
HPI - Animal Bite General Time Seen by Provider: 00:42 Date Seen: 12/29/24 Chief Complaint: Animal Bite Stated Complaint: Cat bite left hand Time Seen by Provider: 12/29/24 00:40 Source: patient Mode of arrival: ambulatory Limitations: no limitations History of Present Illness HPI narrative: 19-year-old male who comes in today with concern for cat bite on the hand . Patient was holding his friend's cat when it became spooked and bit him on the left hand. Immunizations are up-to-date, CT is observable. Patient immunizations are up-to-date as well. No foreign body sensation in the wound. Related Data Home Medications ?Medication ?Instructions ?Recorded ?Confirmed melatonin 5 mg capsule 5 - 10 mg PO HS PRN 05/20/24 05/20/24 Previous Rx's ?Medication ?Instructions ?Recorded amoxicillin 875 mg-potassium 1 tab PO BID #14 tabs 05/21/24 clavulanate 125 mg tablet oxycodone 5 mg tablet 5 mg PO Q6H PRN pain #10 tabs 05/21/24 Allergies Allergy/AdvReac Type Severity Reaction Status Date / Time No Known Drug Allergies Allergy Verified 05/06/23 11:05 PFSH PFSH Medical History (Updated 12/29/24 @ 00:52 by Yasir Chua MD) ADHD ?F90.9 - Attention-deficit hyperactivity disorder, unspecified type (ICD-10) Surgical History (Updated 05/20/24 @ 23:07 by Merna Loomis MD) H/O peritonsillar abscess drainage ?Z98.890 - Other specified postprocedural states (ICD-10) Social History (Updated 05/20/24 @ 23:09 by Merna Loomis MD) Narrative: Works at a local [employer]. He tells me that he vapes socially, but has not had any for a few days because he tried yesterday but could not really suck and air through the vape due to pain. He typically uses marijuana daily but again has not used it for several days. He tells me he has not used alcohol in several weeks to months. He denies any other recreational drugs besides marijuana. What is your current living situation?: I presently have a place to live Problems where you live: no known problems Problems where you live details: N/A In the past 12 months, utilities in danger of being shut off: no In past 12 months, lack of transportation kept you from medical appts, meetings, work, or getting things needed for daily living: no In the past 12 mos, have been you worried that your food would run out before you had money to buy more?: never true In the past 12 mos, the food you bought just didn't last and you didn't have money to buy more?: never true Highest level of school completed/degree received: high school graduate Smoking Status: Never smoker Do you use any of these nicotine containing products: None Second hand tobacco smoke exposure: No How often do you have a drink containing alcohol: 2-3 times a week Alcohol type: beer How many standard drinks containing alcohol do you have on a typical day: 1 or 2 How often do you have six or more drinks on one occasion: Never AUDIT-C Alcohol total score: 3 Non-prescribed substance use: denies use Non-prescribed substance use details: daily smoking Caffeine: Yes How often does anyone, including family, friends and others, physically hurt you: never How often does anyone, including family, friends and others, insult or talk down to you: never How often does anyone, including family, friends and others, threaten you with harm: never How often does anyone, including family, friends and others, scream or curse at you: never service: No Exam Narrative: Exam Narrative: General: well nourished , NAD Head: Atraumatic and normocephalic ENT: External ears and external nose are normal Eyes: Conjunctiva clear, pupils are equal reactive, external ocular motions are intact Neck: Full spontaneous range of motion of the neck Lungs: No respiratory distress Musculoskeletal: No tenderness or deformity Neurologic: No gross focal neurologic deficits Skin: Scratch on the extensor surface of left wrist, puncture wounds of the 4th finger medial and lateral. Full movement of the hand. Psych: Mood and affect are appropriate Course Course ED Course: reviewed most recent emergency department visit from May 2020 for which was for a peritonsillar abscess treated with antibiotics , admitted overnight for observation but did not ultimately end up getting surgical drainage. Patient presents today with cat bite and scratches of left hand. Patient's immunizations are up-to-date, the cat belongs to a friend and is observable, additionally positions are up-to-date. We discussed follow-up if the animal starts behaving abnormally, at this time no indication for initiating rabies post exposure prophylaxis. Augmentin prescribed for prophylaxis. Discharge Plan Discharge Clinical Impression: Cat bite Patient Disposition: Home, Self-Care Condition: Stable Instructions: Animal Bite (ED) Additional Instructions: Wash twice a day with soap and water, apply Band-Aid or dressing as needed. Take antibiotics as prescribed. If the animal develops abnormal behavior in the next 5-7 days, return to the emergency department for rabies immunizations. Activity Level: Activity as Tolerated Discharge Diet: Regular Prescriptions: No Action melatonin 5 mg capsule 5 - 10 mg PO HS PRN amoxicillin-pot clavulanate 875-125 mg tablet 1 tab PO BID Qty: 14 0RF oxycodone 5 mg tablet 5 mg PO Q6H PRN (Reason: pain) Qty: 10 0RF Follow Up/Referrals: Damion Huggins DO [Primary Care Provider] - Stand Alone Forms: MyHealth Info Instructions
--- OUTSIDE RECORDS SUMMARY | 2024-12-29 01:00 | XMS_ITS | Clinical Summary ---
Author Organization [employer] [facility] Address [address] [place] [id number] Care Team Providers Care Supervisor Kennel Name Role Phone Carmen Rader MD Primary [...] inattentive type 12/05/2020 Overview (12/05/2020): Diagnosed at [facility] Immunizations Immunization Administration Dates Next Due COVID-19 vaccine (Wellntel-Bio NTech 30mcg/0.3mL) 12YO+ BIVALENT PF MDV 09/01/2022 COVID-19 vaccine (Wellntel-Bio NTech 30mcg/0.3mL) PF MDScot 02/19/2021,01/29/2021 DTaP 09/24/2005,2004 [id number] (Pediarix) 2004,2004 DTaP-IPV (Kinrix) 06/07/2009 HIB PRP-OMP [...] on file Legal Sex Male 7:05 AM DIRECT MARKETING COORDINATOR Gender Identity Not on file Sexual Orientation Not on file Obstetrics History Last Filed Vital Signs Vital Sign Reading Time Taken Comments Blood Pressure 130/80 11/02/2023 11:07 AM DIRECT MARKETING COORDINATOR Pulse 84 11/02/2023 11:07 AM DIRECT MARKETING COORDINATOR Temperature 36.9 C (98.5 F) 02/13/2021 11:44 AM CDT Respiratory Rate - - Oxygen Saturation 99% 11/02/2023 11: 07 AM DIRECT MARKETING COORDINATOR Inhaled Oxygen Concentration - - Weight 64.7 kg (142 lb 11.2 oz) 024 11:07 AM DIRECT MARKETING COORDINATOR Height 173 cm (5' 8.11) 11/02/2023 11: 07 AM DIRECT MARKETING COORDINATOR Body Mass Index 21.63 11/02/2023 11:07 AM DIRECT MARKETING COORDINATOR Plan of Treatment Health Maintenance Due Date [...] ANTI HIV 1/2 Routine 12/05/2020 12:35 PM DIRECT MARKETING COORDINATOR Screening for HIV (human immunodeficiency virus) from Last 3 Months or Most Recently Relevant to Health Maintenance Results * ANTI HIV 1/2 (12/05/2020 12:35 PM DIRECT MARKETING COORDINATOR) HIV-1/HIV-2 ANTIBODY Non-Reacti ve Non-Reacti ve 12/05/2020 10:43 PM DIRECT MARKETING COORDINATOR [facility] Comment:HIV-1 p24 and HIV-1/ HIV-2 Ab not detected. Blood BLOOD SPECIMEN / Unknown Venipuncture / Unknown 12/05/2020 12:35 PM DIRECT MARKETING COORDINATOR 12/05/2020 12:40 PM DIRECT MARKETING COORDINATOR Carmen Rader MD SEND OUTS Fin al Result [facility] [address] [place] [address], [place] from Last 3 Months or Most Recently Relevant to Health Maintenance Insurance [facility] Care Teams Supervisor Kennel Relationship Specialty Start Date End Date Carmen Rader MD [address] [place] [address] PCP - General Pediatric 01/06/21
== END 2024-12-29 01:01 | disposition home or self-care (01) ==
LOC: ED 00:58
PROVIDERS: Emergency Provider Family Medicine; PCP Pediatrics
DX: S61.432A Puncture wound without foreign body of left hand, initial encounter (principal); W55.01XA Bitten by cat, initial encounter
CPT/HCPCS: 99283